=== PATIENT | male | born 1975 | race African-American/Black ===

== ENCOUNTER → 2022-06-17 | Outpatient (CLI) | payer OTHER ==
[2022-06-17 17:26] LABS: BUN/CREATININE RATIO 26 (0-10)
[2022-06-19 07:10] LABS: HIV AB/P24 AG SCREEN Non Reactive (Non Reactive)
[2022-06-19 08:13] LABS: THYROXINE (T4) 5.8 ug/dL (4.5-12.0); VITAMIN D, 25-HYDROXY 39.7 ng/mL (30.0-100.0)
[2022-06-19 09:13] LABS: HBSAG SCREEN Negative (Negative); HCV AB 0.1 (0.0-0.9); HEP A AB, IGM Negative (Negative); HEP B CORE AB, IGM Negative (Negative); HEPATITIS B SURF AB QUANT <3.1 mIU/mL (Immunity>9.9)
[2022-06-19 19:08] LABS: QUANTIFERON MITOGEN VALUE >10.00 IU/mL (.); QUANTIFERON NIL VALUE 0.03 IU/mL (.); QUANTIFERON TB1 AG VALUE 0.04 IU/mL (.); QUANTIFERON TB2 AG VALUE 0.06 IU/mL (.); QUANTIFERON-TB GOLD PLUS Negative (Negative)
[2022-06-21 23:07] LABS: T PALLIDUM ANTIBODIES Non Reactive (Non Reactive)
== END ==
LOC: LAB 15:34
PROVIDERS: Physician Assistant
DX: F14.20 Cocaine dependence, uncomplicated (principal); F10.20 Alcohol dependence, uncomplicated; F31.31 Bipolar disorder, current episode depressed, mild
CPT/HCPCS: 36415; 80053; 80061; 80074; 82248; 82607; 82728; 83036; 83540; 83735; 84436; 84443; 84481; 86317; 86592; 86704; 86780; 87340; 87389